=== PATIENT | female | born 1970 | race Hispanic/Latino ===

== ENCOUNTER 2021-08-16 08:40 | Day surgery (SDC) | payer OTHER ==
[2021-08-15 16:14] LABS: BASOPHILS % (AUTO) 0.6 % (0.0-5.0); EOSINOPHILS % (AUTO) 0.8 % (0.0-8.0); HEMATOCRIT 39.2 % (36-48); LYMPHOCYTES % (AUTO) 20.1 % (21.0-51.0); MEAN CORPUSCULAR HEMOGLOBIN 28.5 pg (27.0-33.0); MEAN CORPUSCULAR HGB CONC 33.9 g/dL (32.0-36.0); MEAN CORPUSCULAR VOLUME 83.9 fL (79-99); MONOCYTES % (AUTO) 6.7 % (3.0-13.0); NEUTROPHILS % (AUTO) 71.4 % (40.0-77.0); PLATELET COUNT (AUTO) 351 K/uL (130-400); RED BLOOD CELL COUNT(AUTO) 4.67 MIL/uL (4.00-5.50); RED CELL DISTRIBUTION WIDTH 13.2 % (11.0-15.5); WHITE BLOOD COUNT (AUTO) 10.1 K/uL (4.8-10.8)
[2021-08-15 16:18] VITALS: BP 147/85
[~2021-08-16] VITALS: Ht 149.9 cm; Wt 73.3 kg
[2021-08-16] VITALS (16 sets, daily range): BP systolic 117–154; BP diastolic 75–97
[~2021-08-16 08:40] MED LIST: CEFAZOLIN SODIUM 1 GM VIAL IVP SCH
[2021-08-16] MEDS ORDERED: CALDOLOR 800MG+NS 250ML 250 ML IV ONE (08:58)
[2021-08-16] MEDS ORDERED: LACTATED RINGERS 1000ML 1,000 ML IV ONE (09:03)
[2021-08-16] MEDS ORDERED: FENTANYL CITRATE PF 50 MCG/1 ML 2ML VIAL ONE (10:27)
[2021-08-16] MEDS ORDERED: PROPOFOL 10 MG/ML 20ML VIAL IV ONE (10:27)
[2021-08-16] MEDS ORDERED: ROCURONIUM 10MG/1ML SYR 10 MG/ML ML ONE (10:27)
[2021-08-16] MEDS ORDERED: ONDANSETRON 4MG INJ ONE (10:27)
[2021-08-16] MEDS ORDERED: MIDAZOLAM HCL 1 MG/ML 2ML VIAL ONE (10:27)
[2021-08-16] MEDS ORDERED: NEOSTIGMINE 5MG/5ML SYR IV ONE (10:57)
[2021-08-16] MEDS ORDERED: GLYCOPYRROLATE 1 MG/5 ML SYRINGE ONE (10:57)
[2021-08-16] MEDS ORDERED: SILVER NITRATE APPLICATOR 1 SWAB TP ONE ×2 (10:58→10:59)
[2021-08-16] MEDS ORDERED: MEPERIDINE-PF 25 MG/ML SYG ONE ×2 (11:31→11:39)
== END 2021-08-16 12:50 | disposition home or self-care (01) ==
LOC: DAH 08:40
PROVIDERS: ATTEND Obstetrics & Gynecology
DX: N92.1 Excessive and frequent menstruation with irregular cycle (principal); N84.0 Polyp of corpus uteri; I10 Essential (primary) hypertension; G43.909 Migraine, unspecified, not intractable, without status migrainosus; F41.9 Anxiety disorder, unspecified; F32.A Depression, unspecified; Z79.899 Other long term (current) drug therapy
CPT/HCPCS: 36415; 58563; 84703; 85025; 86850; 86900; 86901; 87635; A4215; A4221; A4222; A4223; A4351; A4663; A6260; C1769; C9803; J0690; J1741; J2175 ×2; J2250; J2405; J2704; J2710; J3010; J3490; J7030; J7120

== ENCOUNTER → 2022-10-12 | Outpatient (CLI) | payer OTHER | END | disposition home or self-care (01) | LOC: RAH 14:02 | PROVIDERS: ATTEND Family Medicine | DX: M54.50 Low back pain, unspecified (principal); M43.12 Spondylolisthesis, cervical region; M47.812 Spondylosis without myelopathy or radiculopathy, cervical region; M47.816 Spondylosis without myelopathy or radiculopathy, lumbar region | CPT/HCPCS: 72125; 72131 ==